=== PATIENT | male | born 1975 | race Caucasian/White ===

== ENCOUNTER 2023-08-18 13:17 | Emergency (ER) | payer BC, OTHER ==
[~2023-08-18] VITALS: Ht 180.3 cm; Wt 95.3 kg
[2023-08-18] MEDS ORDERED: AMLO2.5T4 PO (13:38)
[2023-08-18 14:28] LABS: BASOPHILS # (AUTO) 0.1 K/UL (0.0-0.2); BASOPHILS % (AUTO) 0.6 % (0.0-2.0); EOSINOPHILS % (AUTO) 0.3 % (0.0-7.0); HEMOGLOBIN 14.2 g/dL (12.5-16.3); LYMPHOCYTES # (AUTO) 2.8 K/uL (0.8-4.8); MEAN CORPUSCULAR HEMOGLOBIN 31.6 uug (23.8-33.4); MEAN CORPUSCULAR HGB CONC 34 g/dL (32.5-36.3); MEAN CORPUSCULAR VOLUME 93.2 fL (73.0-96.2); MONOCYTES # (AUTO) 0.7 K/uL (0.1-1.30); MONOCYTES % (AUTO) 5.7 % (0.0-11.0); NEUTROPHILS % (AUTO) 69.4 % (38.5-71.5); PLATELET COUNT (AUTO) 242 K/uL (152-348); RED BLOOD CELL COUNT(AUTO) 4.51 MIL/uL (4.06-5.63); RED CELL DISTRIBUTION WIDTH 13.5 % (12.1-16.2); WHITE BLOOD COUNT (AUTO) 11.6 K/uL (3.6-10.2)
[2023-08-18 15:04] LABS: DIFFERENTIAL COMMENT 1
[2023-08-18 15:15] LABS: ETHANOL < 3 MG/DL (0-10)
[2023-08-18 15:18] LABS: CALCIUM 8.9 mg/dL (8.5-10.1); CARBON DIOXIDE 30 mmol/L (21-32); CHLORIDE 104 mmol/L (98-107); CREATININE 0.8 mg/dL (0.6-1.3); GLUCOSE 101 mg/dL (74-106); POTASSIUM 3.9 mmol/L (3.5-5.1); SODIUM SERUM 139 mmol/L (136-145); UREA NITROGEN, BLOOD 12 mg/dL (7-18)
[2023-08-18 15:20] LABS: *AMPHETAMINE, URINE NEGATIVE (NEGATIVE); *BARBITURATE, URINE NEGATIVE (NEGATIVE); *BENZODIAZEPINE, URINE NEGATIVE (NEGATIVE); *CANNABINOID, URINE NEGATIVE (NEGATIVE); *COCCAINE, URINE NEGATIVE (NEGATIVE); *OPIATE, URINE NEGATIVE (NEGATIVE); *PHENCYCLIDINE SCREEN,URINE NEGATIVE (NEGATIVE)
[2023-08-18] MEDS ORDERED: SWABABLE VALVE TRANSFER SET EA MC ONE (15:24)
[2023-08-18] MEDS ORDERED: IV NORMAL SALINE 250 ML IV ONE (15:24)
[2023-08-18] MEDS ORDERED: IOHEXOL 350 100 ML INFUS..BTL ONE (15:24)
[2023-08-18 15:28] LABS: FENTANYL, URINE NEGATIVE (NEGATIVE)
[2023-08-18 15:30] LABS: ALANINE AMINOTRANSFERASE 170 U/L (16-63); ALBUMIN 3.6 g/dL (3.4-5.0); ALKALINE PHOSPHATASE 56 U/L (50-136); ASPARTATE AMINOTRANSFERASE 49 U/L (15-37); BILIRUBIN,DIRECT 0.1 mg/dL (0.0-0.2); BILIRUBIN,TOTAL 0.6 mg/dL (0.2-1.0); CHOLESTEROL 217 mg/dL (<200); HDL CHOLESTEROL 52 mg/dL (40-60); TOTAL PROTEIN, SERUM 6.7 g/dL (6.4-8.2); TRIGLYCERIDES 278 MG/DL (30-150)
[2023-08-18 15:41] LABS: *BILIRUBIN,URIN NEGATIVE (NEGATIVE); *BLOOD, URINE NEGATIVE (NEGATIVE); *CLARITY,URINE CLEAR (CLEAR); *COLOR,URINE YELLOW (YELLOW); *KETONES,URINE NEGATIVE (NEGATIVE); *PROTEIN,URINE NEGATIVE (NEGATIVE); *UROBILINOGEN,URINE 0.2 E.U./dl (NORMAL); LEUKOCYTE ESTERASE ,URINE NEGATIVE (NEGATIVE); NITRITE, URINE NEGATIVE (NEGATIVE); UGLUCOSE NEGATIVE (NEGATIVE)
[2023-08-18] MEDS ORDERED: ASPIRIN 81 MG TAB.CHEW ONE (16:29)
[2023-08-18] MEDS ORDERED: LOSARTAN POTASSIUM 50 MG TABLET PO SCH (16:30)
[2023-08-18] MEDS ORDERED: ASPIRIN 81 MG TAB.CHEW PO ONE (16:30)
[2023-08-18] MEDS ORDERED: ONDANSETRON 4 MG/2 ML VIAL IV PRN (16:30)
[2023-08-18] MEDS ORDERED: REMEDY ESSENTIAL ZINC PASTE 113 GM TP PRN (16:30)
[2023-08-18] MEDS ORDERED: MAGNESIUM HYDROXIDE 30 ML LIQUID UDC PO PRN (16:30)
[2023-08-18] MEDS ORDERED: ACETAMINOPHEN 325 MG TABLET PO PRN (16:30)
[2023-08-18] MEDS ORDERED: HYDROCODONE/APAP 5-325MG TABLET ONE (16:54)
[2023-08-18] MEDS: HYDROCODONE/APAP 5-325MG TABLET PO ONE ×2 (16:55→17:03)
[2023-08-18] MEDS ORDERED: KETOROLAC TROMETHAMINE 15 MG INJ IVP ONE (17:15)
[2023-08-18] MEDS ORDERED: KETO10TA2 PO (17:46)
[2023-08-18 18:33] VITALS: BP 140/80; TEMP 97; O2SAT 99
[2023-08-19] MEDS ORDERED: AMLODIPINE 2.5 MG TABLET PO SCH (09:00)
== END 2023-08-18 18:52 | disposition left against medical advice (07) ==
LOC: ER 13:17
DX: I10 Essential (primary) hypertension (principal); M25.512 Pain in left shoulder; E78.1 Pure hyperglyceridemia; E78.5 Hyperlipidemia, unspecified; E78.00 Pure hypercholesterolemia, unspecified; R53.1 Weakness; Z79.899 Other long term (current) drug therapy; Z60.2 Problems related to living alone
CPT/HCPCS: 36415; 70496; 71045; 73030; 84484; 85025; 85730; 93005; A4606; A4663; G0480; Q9967